=== PATIENT | male | born 1990 | race Caucasian/White ===

== ENCOUNTER 2019-09-23 12:13 | Emergency (ER) | payer OTHER ==
--- NOTE | 2019-09-23 12:37 | ED ---
Psychiatric Complaint - HPI Summary HPI Summary: This pt is a 29 Y/O M presenting to [facility] accompanied by his mother and father with a CC of anxiety attacks. He states that he recently has been sobering up from methamphetamine usage. He states that he was clean for 28 days before he relapsed, currently he is 2 days sober. He states that he is unable to be in public and has mental break downs over the smallest of things like deciding between 2 sodas. He states that he has no HI or SI, fevers, chills, N/V, and SOB. He has no alleviating factors. He states that he has a SHx of smoking cigarettes, he states that he has been drinking heavier as of later. He states that he has a PMHx of ADHD and anxiety. He states that his prescribed anti- anxiety medications have not been super helpful. - History Of Current Complaint Chief Complaint: EDMentalHealth Time Seen by Provider: 09/23/19 12:23 Accompanied By: family Hx Obtained From: Patient Onset/Duration: Gradual Onset, Lasting Days - 30, Still Present Timing: Constant Severity Currently: None Character: Anxious Aggravating Factor(s): Other - methamphetimine withdrawl Alleviating Factor(s): Nothing Related History: Positive For: Prior Psychiatric Issues - ADHD, anxiety Has Suicidal: Denies: Thoughts, With A Plan Has Homicidal: Denies: Thoughts, With A Plan - Allergies/Home Medications Allergies/Adverse Reactions: Allergies Allergy/AdvReac Type Severity Reaction Status Date / Time No Known Allergies Allergy Verified 02/19/14 14:12 PMH/Surg Hx/FS Hx/Imm Hx Previously Healthy: Yes Endocrine/Hematology History: Denies: Hx Diabetes Cardiovascular History: Denies: Hx Hypertension Respiratory History: Denies: Hx Asthma Psychiatric History: Reports: Hx Anxiety, Hx Attention Deficit Hyperactivity Disorder - Cancer History Hx Chemotherapy: No Hx Radiation Therapy: No - Surgical History Surgical History: None - Immunization History Immunizations Up to Date: Yes Infectious Disease History: No Infectious Disease History: Denies: Traveled Outside the [place] in Last 30 Days - Family History Known Family History: Positive: Hypertension, Diabetes - Social History Occupation: Unemployed Lives: With Family Alcohol Use: Daily Alcohol Amount: DRINKS WITH HIS FRIENDS AFTER WORK Substance Use Type: Reports: Marijuana - OCCASIONAL USE, Other - methamphetamine Hx Tobacco Use: Yes Smoking Status (MU): Current Every Day Smoker Review of Systems Negative: Fever, Chills Negative: Shortness Of Breath Negative: Vomiting, Nausea Psychological: Other - NEGATIVE: SI and HI Positive: Anxious All Other Systems Reviewed And Are Negative: Yes Physical Exam - Summary Physical Exam Summary: VITAL SIGNS: Reviewed. GENERAL: Patient is a well-developed and nourished male who is lying comfortable in the stretcher. Patient is not in any acute respiratory distress. HEAD AND FACE: No signs of trauma. No ecchymosis, hematomas or skull depressions. No sinus tenderness. EYES: PERRLA, EOMI x 2, No injected conjunctiva, no nystagmus. EARS: Hearing grossly intact. Ear canals and tympanic membranes are within normal limits. MOUTH: Oropharynx within normal limits. NECK: Supple, trachea is midline, no adenopathy, no JVD, no carotid bruit, no c- spine tenderness, neck with full ROM. CHEST: Symmetric, no tenderness at palpation LUNGS: Clear to auscultation bilaterally. No wheezing or crackles. CVS: Regular rate and rhythm, S1 and S2 present, no murmurs or gallops appreciated. ABDOMEN: Soft, non-tender. No signs of distention. No rebound no guarding, and no masses palpated. Bowel sounds are normal. EXTREMITIES: FROM in all major joints, no edema, no cyanosis or clubbing. NEURO: Alert and oriented x 3. No acute neurological deficits. Speech is normal and follows commands. SKIN: Dry and warm Triage Information Reviewed: Yes Vital Signs On Initial Exam: Initial Vitals Temp Pulse Resp BP Pulse Ox 97.5 F 86 16 141/72 98 09/23/19 12:15 09/23/19 12:15 09/23/19 12:15 09/23/19 12:15 09/23/19 12:15 Vital Signs Reviewed: Yes Procedures - Sedation Patient Received Moderate/Deep Sedation with Procedure: No Diagnostics - Vital Signs Vital Signs Temp Pulse Resp BP Pulse Ox 09/23/19 12:15 97.5 F 86 16 141/72 98 - Laboratory Result Diagrams: 09/23/19 12:38 09/23/19 12:38 Lab Statement: Any lab studies that have been ordered have been reviewed, and results considered in the medical decision making process. Course/Dx - Course Assessment/Plan: This pt is a 29 Y/O M presenting to [facility] accompanied by his mother and father with a CC of anxiety attacks. He states that he recently has been sobering up from methamphetamine usage. He states that he was clean for 28 days before he relapsed, currently he is 2 days sober. He states that he is unable to be in public and has mental breakdowns over the smallest of things like deciding between 2 sodas. He states that he has no HI or SI, fevers, chills, N/V, and SOB. He has no alleviating factors. He states that he has a SHx of smoking cigarettes, he states that he has been drinking heavier as of later. He states that he has a PMHx of ADHD and anxiety. He states that his prescribed anti-anxiety medications have not been super helpful. Blood work w/ o a significant abnormality. He is medically cleared. He is awaiting a MHE. Patient is hemodynamically stable and A+O x 3. Patient was ablated by Dr. Pearl from psychiatry and he recommends for the patient to be discharged home with follow-up with primary care physician. Patients diagnosis is polysubstance abuse. - Differential Dx/Clinical Impression Differential Diagnosis/HQI/PQRI: Positive: Anxiety, Depression Provider Diagnosis: Polysubstance abuse - Physician Notifications Discussed Care Of Patient With: Keshav Guillermo Time Discussed With Above Provider: 17:41 Instructed by Provider To: Other - Dr. Guillermo, psychiatrist, recommended discharging the pt home with a Dx of polysubstance abust to follow up in out patient care. He will be given Ativan, Clonipin, and Remeron. Discharge ED - Sign-Out/Discharge Documenting (check all that apply): Patient Departure - discharge - Discharge Plan Condition: Stable Disposition: HOME Patient Education Materials: Polysubstance Abuse (ED) Referrals: Rambo Daley III, MD [Primary Care Provider] - - Billing Disposition and Condition Condition: STABLE Disposition: Home - Attestation Statements Document Initiated by Harrisonibe: Yes Documenting Scribe: Valentino Echevarria Provider For Whom Beau is Documenting (Include Credential): Chinedu Nunez MD Scribe Attestation: Valentino Atkins, scribed for Chinedu Nunez MD on 09/23/19 at 1809. Scribe Documentation Reviewed: Yes Provider Attestation: The documentation as recorded by the Valentino mcclelland accurately reflects the service I personally performed and the decisions made by me, Chinedu Nunez MD Status of Beau Document: Viewed
[2019-09-23 12:48] LABS: ABS Eosinophils 0.5 10^3/ul (0-0.6); ABS Lymphocytes 1.5 10^3/ul (1.0-4.8); ABS Monocytes 0.9 10^3/ul (0-0.8); Eosinophil % 4.2 %; Hematocrit 45 % (42-52); Lymphocyte % 13.8 %; Mean Corpuscular HGB Conc 34 g/dL (31-36); Mean Corpuscular Hemoglobin 32 pg (27-31); Mean Corpuscular Volume 95 fL (80-94); Platelet Count 298 10^3/uL (150-450); Red Cell Distribution Width 14 % (10-15); White Blood Count 10.9 10^3/uL (3.5-10.8)
[2019-09-23 13:08] LABS: ALT 16 U/L (7-52); AST 20 U/L (13-39); Albumin 4.2 g/dL (3.2-5.2); Albumin/Globulin Ratio 1.8 (1-3); Alkaline Phosphatase 47 U/L (34-104); Anion Gap 5 mmol/L (2-11); BUN/Creatinine Ratio 10.3 (8-20); Blood Urea Nitrogen 11 mg/dL (6-24); CO2 Carbon Dioxide 28 mmol/L (22-32); Calcium 8.9 mg/dL (8.6-10.3); Chloride 104 mmol/L (101-111); EGFR African American 99.6 (>60); EGFR Non-African American 82.3 (>60); Globulin 2.4 g/dL (2-4); Glucose 86 mg/dL (70-100); Potassium 3.8 mmol/L (3.5-5.0); Sodium 137 mmol/L (135-145); Total Protein 6.6 g/dL (6.4-8.9)
[2019-09-23 13:26] LABS: Acetaminophen < 15 mcg/mL; Alcohol < 10 mg/dL (<10); Salicylate < 2.50 mg/dL (<30)
[2019-09-23 13:43] LABS: TSH (Thyroid Stimulating Horm) 1.09 mcIU/mL (0.34-5.60)
[2019-09-23 15:45] LABS: Urine Benzodiazepine Screen Presumptive Positive (None Detect); Urine Opiates Screen None Detected (None Detect)
[2019-09-23 15:57] LABS: Urine Appearance Clear; Urine Blood Negative (Negative); Urine Color Yellow; Urine Ketones Negative (Negative); Urine Protein 1+(30 mg/dL) (Negative); Urine Urobilinogen Negative (Negative)
[2019-09-23 15:58] LABS: Urine Bilirubin Negative (Negative); Urine Glucose Negative (Negative); Urine Nitrite Negative (Negative)
[2019-09-23 18:04] VITALS: BP 126/72
== END 2019-09-23 18:02 | disposition home or self-care (01) ==
LOC: ED 12:13
DX: F19.10 Other psychoactive substance abuse, uncomplicated (principal); F41.9 Anxiety disorder, unspecified; F90.9 Attention-deficit hyperactivity disorder, unspecified type; F17.210 Nicotine dependence, cigarettes, uncomplicated; Z79.899 Other long term (current) drug therapy
CPT/HCPCS: 36415; 80053; 80307; 80320; 80329; 81003; 81015; 84443; 85025; 99283; G0480

== ENCOUNTER 2022-10-23 14:38 | Inpatient (IN) ==
[2022-10-23 16:04] LABS: Urine Appearance Clear; Urine Bilirubin Negative (Negative); Urine Blood Negative (Negative); Urine Color Yellow; Urine Glucose Negative (Negative); Urine Ketones Trace (Negative); Urine Nitrite Negative (Negative); Urine Protein Negative (Negative); Urine Specific Gravity 1.012 (1.002-1.030); Urine Urobilinogen Negative (Negative)
[2022-10-23] MEDS ORDERED: NS 0.9% 1000 ml BAG 1,000 ML IV ONE (18:14)
[2022-10-23 19:41] LABS: Urine Benzodiazepine Screen None Detected (None Detect); Urine Buprenorphine Screen Presumptive Positive (None Detect); Urine Cannabinoids Screen Presumptive Positive (None Detect); Urine Fentanyl Screen None Detected (None Detect); Urine Hydrocodone Screen None Detected (None Detect); Urine Opiates Screen None Detected (None Detect)
[2022-10-23 19:55] LABS: ABS Basophils 0.1 10^3/ul (0-0.2); ABS Eosinophils 0.1 10^3/ul (0-0.6); ABS Lymphocytes 1.5 10^3/ul (1.0-4.8); ABS Monocytes 0.6 10^3/ul (0-0.8); ABS Neutrophils 6.3 10^3/ul (1.5-7.7); Eosinophil % 1.4 %; Hematocrit 46 % (42-52); Hemoglobin 15.5 g/dL (14.0-18.0); Lymphocyte % 17.7 %; Mean Corpuscular HGB Conc 34 g/dL (31-36); Mean Corpuscular Hemoglobin 30 pg (27-31); Mean Corpuscular Volume 91 fL (80-94); Mean Platelet Volume 8.1 fL (7.4-10.4); Platelet Count 361 10^3/uL (150-450); Red Blood Count 5.11 10^6 /uL (4.18-5.48); Red Cell Distribution Width 14 % (10-15); White Blood Count 8.6 10^3/uL (3.5-10.8)
[2022-10-23 21:10] LABS: PCO2 Arterial 40 mmHg (35-45); PO2 Arterial 88 mmHg (80-100)
[2022-10-23 21:13] LABS: Alcohol, S < 13 mg/dL (<13); Anion Gap 7 mmol/L (2-11); Blood Urea Nitrogen 12 mg/dL (6-24); CO2 Carbon Dioxide 26 mmol/L (22-32); Calcium 9.8 mg/dL (8.6-10.3); Chloride 101 mmol/L (101-111); Creatinine, Serum 0.83 mg/dL (0.67-1.17); Glucose 91 mg/dL (70-100); Potassium 4.8 mmol/L (3.5-5.0); Sodium 134 mmol/L (135-145)
[2022-10-23 23:15] LABS: ALT 18 U/L (7-52); AST 21 U/L (13-39); Albumin 4.8 g/dL (3.2-5.2); Albumin/Globulin Ratio 1.5 (1-3); Alkaline Phosphatase 56 U/L (35-149); Globulin 3.1 g/dL (2-4); Total Protein 7.9 g/dL (6.4-8.9)
[2022-10-24] MEDS: Buprenorp/Nalox 8-2 MG FILM SL SCH ×2 (04:31→08:01)
[2022-10-24] MEDS ORDERED: Midazolam 5 mg/5 ml VIAL 1 mg/ml 5 ml VIAL (5 mg) ONE (07:19)
[2022-10-24] MEDS ORDERED: fentaNYL 100 mcg/2 ml 50 MCG/ML VIAL ONE (07:19)
[2022-10-24] MEDS ORDERED: Propofol 10 MG/ML 20 ML BTL ONE (07:19)
[2022-10-24] MEDS ORDERED: Ketamine HCL 50 mg/ml 10 ml VIAL (500 MG) ONE (07:19)
[2022-10-24] MEDS ORDERED: Ondansetron 4 mg VIAL 2 MG/ML 2 ml VIAL ONE (07:19)
[2022-10-24] MEDS ORDERED: Lidocaine 2% PF 5 ML VIAL ONE (07:19)
[2022-10-24 08:15] LABS: ABS Basophils 0.1 10^3/ul (0-0.2); ABS Eosinophils 0.3 10^3/ul (0-0.6); ABS Lymphocytes 2.1 10^3/ul (1.0-4.8); ABS Monocytes 0.8 10^3/ul (0-0.8); ABS Neutrophils 6.8 10^3/ul (1.5-7.7); Eosinophil % 2.9 %; Hematocrit 46 % (42-52); Hemoglobin 15.6 g/dL (14.0-18.0); Lymphocyte % 20.6 %; Mean Corpuscular HGB Conc 34 g/dL (31-36); Mean Corpuscular Hemoglobin 31 pg (27-31); Mean Corpuscular Volume 91 fL (80-94); Mean Platelet Volume 7.9 fL (7.4-10.4); Platelet Count 344 10^3/uL (150-450); Red Blood Count 5.07 10^6 /uL (4.18-5.48); Red Cell Distribution Width 14 % (10-15)
[2022-10-24] MEDS ORDERED: Acetaminophen IV 1 GM/100ML 1,000 MG/100 ML BAG IV PRN (08:52)
[2022-10-24] MEDS ORDERED: Ondansetron 4 mg VIAL 2 MG/ML 2 ml VIAL IV PRN (08:52)
[2022-10-24] MEDS ORDERED: Naloxone 0.4 mg VIAL 0.4 mg/ml 1 ml VIAL IV PRN (08:52)
[2022-10-24] MEDS ORDERED: Lactated Ringers 1000 ml BAG 1,000 ML IV SCH (09:00)
[2022-10-24 09:12] LABS: Creatinine, Serum 0.89 mg/dL (0.67-1.17); Potassium 4.7 mmol/L (3.5-5.0)
[2022-10-24 09:13] LABS: Calcium 9.3 mg/dL (8.6-10.3); Magnesium 2.1 mg/dL (1.9-2.7); Phosphorus 3.8 mg/dL (2.5-5.0); eGFR CKD-EPI 117.5 (>60)
[2022-10-24 12:03] VITALS: BP 128/89
== END 2022-10-24 13:35 | disposition home or self-care (01) | DRG 773 ==
LOC: ED 14:38 → EDHOLD 21:36 → ICU 10-24 11:30
PROVIDERS: ADMIT Internal Medicine Critical Care Medicine; ATTEND Internal Medicine Critical Care Medicine